=== PATIENT | female | born 1945 | race Caucasian/White ===

== ENCOUNTER → 2018-06-23 | Outpatient (CLI) | payer MEDICARE, BC ==
[~2018-06-23] MED LIST: REGADENOSON 0.4 MG/5 ML SYRINGE ONE
[2018-06-23 13:23] LABS: ANION GAP 9 mmol/L (5-15); CALCIUM 8.8 mg/dL (8.5-10.1); CHLORIDE 112 mmol/L (98-107)
[2018-06-23 13:29] LABS: ALANINE AMINOTRANSFERASE 18 U/L (12-78); ALBUMIN 2.7 g/dL (3.4-5.0); ALKALINE PHOSPHATASE 118 U/L (45-117); BILIRUBIN,TOTAL 0.1 mg/dL (0.2-1.0); CHOLESTEROL, TOTAL 170 mg/dL (140-239); CREATININE 0.96 mg/dL (0.55-1.02); HDL CHOL % 25 % (28-40); HDL CHOLESTEROL (DIRECT) 43 mg/dL (40-60); LDL CHOLESTEROL,CALCULATED 75 mg/dL (54-169); LDL/HDL RATIO 1.7 (0.5-3.0); TOTAL PROTEIN 6.3 g/dL (6.4-8.2); TRIGLYCERIDES 262 mg/dL (50-200); VLDL CHOLESTEROL 52 mg/dL (0-25)
== END | disposition home or self-care (01) ==
LOC: CVU 07:03
PROVIDERS: ATTEND Internal Medicine Cardiovascular Disease
DX: I08.2 Rheumatic disorders of both aortic and tricuspid valves (principal); I42.9 Cardiomyopathy, unspecified; I50.41 Acute combined systolic (congestive) and diastolic (congestive) heart failure; Z87.891 Personal history of nicotine dependence
CPT/HCPCS: 0399T; 36415; 78452; 80053; 80061; 93017; 93306; A9502; J2785

== ENCOUNTER → 2018-09-10 | Outpatient (CLI) | payer MEDICARE, BC | END | disposition home or self-care (01) | LOC: CVU 12:36 | PROVIDERS: ATTEND Internal Medicine Cardiovascular Disease | DX: R22.41 Localized swelling, mass and lump, right lower limb (principal) | CPT/HCPCS: 93970 ==

== ENCOUNTER 2019-07-13 13:39 | Outpatient (CLI) | payer MEDICARE, BC | END 2019-07-13 23:59 | disposition home or self-care (01) | LOC: CFH 13:39 | PROVIDERS: ATTEND Internal Medicine Cardiovascular Disease | DX: I35.8 Other nonrheumatic aortic valve disorders (principal); I25.2 Old myocardial infarction | CPT/HCPCS: 93306 ==

== ENCOUNTER → 2019-09-15 | Outpatient (CLI) | payer MEDICARE, BC | END | disposition home or self-care (01) | LOC: CFH 14:18 | PROVIDERS: ATTEND Nurse Practitioner | DX: Z12.31 Encounter for screening mammogram for malignant neoplasm of breast (principal) | CPT/HCPCS: 77063; 77067 ==

== ENCOUNTER → 2021-02-20 | Outpatient (CLI) | payer MEDICARE, BC | END | disposition home or self-care (01) | LOC: CFH 12:10 | PROVIDERS: ATTEND Internal Medicine Cardiovascular Disease | DX: I06.1 Rheumatic aortic insufficiency (principal); I06.8 Other rheumatic aortic valve diseases; I50.41 Acute combined systolic (congestive) and diastolic (congestive) heart failure; I11.0 Hypertensive heart disease with heart failure; Z87.891 Personal history of nicotine dependence | CPT/HCPCS: 78452; 93017; 93306; A9502; J2785 ==